=== PATIENT | female | born 1985 | race Hispanic/Latino ===

== ENCOUNTER 2021-06-03 01:42 | Emergency (ER) | payer MEDICARE ==
[~2021-06-03] VITALS: Ht 152.4 cm; Wt 79.8 kg
[2021-06-03] MEDS ORDERED: AMOXICILLIN/CLAVULANATE K 875 MG TAB PO STA (02:33)
[2021-06-03] MEDS ORDERED: PENICILLIN V P500 MG PO (02:37)
[2021-06-03] MEDS ORDERED: TRAMADOL HCL 50 MG TAB PO ONE (02:45)
[2021-06-03] MEDS ORDERED: AMOXICILLIN/CLAVULANATE K 875 MG TAB ONE (02:46)
[2021-06-03] MEDS ORDERED: TRAMADOL HCL 50 MG TAB ONE (02:47)
[2021-06-03] MEDS ORDERED: ULTRAM 50MG50 MG PO (02:55)
[2021-06-03 03:03] VITALS: BP 119/77
== END 2021-06-03 03:03 | disposition home or self-care (01) ==
LOC: FSED 02:19
DX: K08.89 Other specified disorders of teeth and supporting structures (principal); R51.9 Headache, unspecified; H92.01 Otalgia, right ear; F17.210 Nicotine dependence, cigarettes, uncomplicated
CPT/HCPCS: 99282